=== PATIENT | female | born 2000 | race African-American/Black ===

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

== ENCOUNTER → 2020-03-11 | Outpatient (CLI) | payer OTHER ==
[2020-03-11 11:40] LABS: BASO % 0.6 % (0.0-1.0); EOS # 0.3 10^3/uL (0.0-0.5); EOS % 3.9 % (0.0-3.0); HEMATOCRIT 41.8 % (42.0-52.0); HEMOGLOBIN 13.1 g/dl (13.5-17.5); LYMPH # 2.3 10^3/uL (1.5-5.0); MEAN CORPUSCULAR HEMOGLOBIN 28.6 pg (27.0-33.0); MEAN CORPUSCULAR HGB CONC 31.3 g/dl (32.0-36.5); MEAN CORPUSCULAR VOLUME 91.3 fl (80.0-96.0); MONO # 0.5 10^3/uL (0.0-0.8); MONO % 6.4 % (0.0-5.0); NEUTROPHILS # 4.1 10^3/uL (1.5-8.5); PLATELET COUNT, AUTOMATED 388 10^3/uL (150-450); RED BLOOD COUNT 4.58 10^6/uL (4.30-6.10); WHITE BLOOD COUNT 7.2 10^3/uL (4.0-10.0)
[2020-03-11 12:30] LABS: ALBUMIN 4.3 GM/DL (3.2-5.2); ALT/SGPT 31 U/L (12-78); BILIRUBIN,TOTAL 1.1 MG/DL (0.2-1.0); BLOOD UREA NITROGEN 6 MG/DL (7-18); CALCIUM LEVEL 9.3 MG/DL (8.5-10.1); CARBON DIOXIDE LEVEL 30 MEQ/L (21-32); CHLORIDE LEVEL 102 MEQ/L (98-107); CREATININE FOR GFR 0.62 MG/DL (0.70-1.30); ESTRADIOL 40.9 PG/ML (<39.8); GLUCOSE, FASTING 98 MG/DL (70-100); POTASSIUM SERUM 3.7 MEQ/L (3.5-5.1); SODIUM LEVEL 138 MEQ/L (136-145); TOTAL PROTEIN 7.8 GM/DL (6.4-8.2)
[2020-03-11 13:06] LABS: HIV 1&2 SCREEN CENTAUR NEGATIVE (NEGATIVE)
== END ==
LOC: M LAB 10:57
PROVIDERS: ATTEND Pediatrics
DX: F64.0 Transsexualism (principal)

== ENCOUNTER → 2021-11-28 | Outpatient (CLI) | payer OTHER ==
[~2021-11-28] MED LIST changes: -ESTR2TAB2; +ESTR2TAB3
[2021-11-28 11:45] LABS: HEMATOCRIT 38.3 % (42.0-52.0); HEMOGLOBIN 12.1 g/dl (13.5-17.5); MEAN CORPUSCULAR HEMOGLOBIN 29.2 pg (27.0-33.0); MEAN CORPUSCULAR HGB CONC 31.6 g/dl (32.0-36.5); MEAN CORPUSCULAR VOLUME 92.3 fl (80.0-96.0); PLATELET COUNT, AUTOMATED 421 10^3/uL (150-450); RED BLOOD COUNT 4.15 10^6/uL (4.30-6.10); WHITE BLOOD COUNT 6.9 10^3/uL (4.0-10.0)
[2021-11-28 12:53] LABS: ALBUMIN 3.5 GM/DL (3.2-5.2); ALT/SGPT 27 U/L (12-78); BILIRUBIN,TOTAL 0.8 MG/DL (0.2-1.0); BLOOD UREA NITROGEN 5 MG/DL (7-18); CALCIUM LEVEL 8.7 MG/DL (8.5-10.1); CARBON DIOXIDE LEVEL 32 MEQ/L (21-32); CHLORIDE LEVEL 105 MEQ/L (98-107); CHOLESTEROL LEVEL 121 MG/DL (<200); CREATININE FOR GFR 0.51 MG/DL (0.70-1.30); GLOMERULAR FILTRATION RATE > 60.0 (>60); GLUCOSE, FASTING 84 MG/DL (70-100); HDL CHOLESTEROL 64 MG/DL (>40); LDL CHOLESTEROL 42 MG/DL (<100); NON-HDL-C 57 MG/DL; POTASSIUM SERUM 4.5 MEQ/L (3.5-5.1); SODIUM LEVEL 140 MEQ/L (136-145); TOTAL PROTEIN 6.9 GM/DL (6.4-8.2); TRIGLYCERIDES LEVEL 77 MG/DL (<150)
[2021-11-28 14:09] LABS: ESTRADIOL 356.2 PG/ML (<39.8); PROLACTIN 8.6 NG/ML (2.1-17.7)
[2021-11-29 21:07] LABS: TESTOSTERONE FREE (DIRECT) 2.9 pg/mL (9.3-26.5)
== END ==
LOC: M LAB 11:10
PROVIDERS: ATTEND Internal Medicine Endocrinology, Diabetes & Metabolism
DX: Z78.9 Other specified health status (principal); F64.0 Transsexualism

== ENCOUNTER → 2022-02-03 | Outpatient (CLI) | payer MEDICAID, OTHER ==
[2022-02-04 20:08] LABS: TESTOSTERONE FREE (DIRECT) 0.8 pg/mL (0.0-4.2)
== END ==
LOC: M LAB 09:22
PROVIDERS: ATTEND Internal Medicine Endocrinology, Diabetes & Metabolism
DX: Z78.9 Other specified health status (principal)

== ENCOUNTER → 2022-07-04 | Outpatient (CLI) | payer OTHER ==
[2022-07-04 14:03] LABS: HEMATOCRIT 40.7 % (36.0-47.0); HEMOGLOBIN 12.9 g/dl (12.0-15.5); MEAN CORPUSCULAR HEMOGLOBIN 29.3 pg (27.0-33.0); MEAN CORPUSCULAR HGB CONC 31.7 g/dl (32.0-36.5); MEAN CORPUSCULAR VOLUME 92.3 fl (80.0-96.0); PLATELET COUNT, AUTOMATED 327 10^3/uL (150-450); RED BLOOD COUNT 4.41 10^6/uL (4.00-5.40)
[2022-07-04 14:40] LABS: ALBUMIN 4.2 G/DL (3.2-5.2); ALKALINE PHOSPHATASE 79 U/L (46-116); ALT/SGPT 15 U/L (7.0-40); AST/SGOT 12 U/L (<34); BILIRUBIN,TOTAL 2.5 MG/DL (0.3-1.2); BLOOD UREA NITROGEN < 5 MG/DL (9-23); CALCIUM LEVEL 9.2 MG/DL (8.5-10.1); CARBON DIOXIDE LEVEL 32 MMOL/L (20-31); CHLORIDE LEVEL 102 MMOL/L (98-107); CREATININE FOR GFR 0.57 MG/DL (0.55-1.30); ESTRADIOL 159.3 PG/ML; GLOMERULAR FILTRATION RATE > 60.0 (>60); GLUCOSE, FASTING 81 MG/DL (60-100); SODIUM LEVEL 138 MMOL/L (136-145); TOTAL PROTEIN 7.5 G/DL (5.7-8.2)
[2022-07-06 21:07] LABS: TESTOSTERONE FREE (DIRECT) 5.2 pg/mL (0.0-4.2)
== END ==
LOC: M LAB 13:04
PROVIDERS: ATTEND Internal Medicine Endocrinology, Diabetes & Metabolism
DX: Z78.9 Other specified health status (principal); Z87.890 Personal history of sex reassignment

== ENCOUNTER → 2022-10-23 | Outpatient (CLI) | payer OTHER ==
[2022-10-23 09:57] LABS: HEMATOCRIT 37.4 % (36.0-47.0); HEMOGLOBIN 11.9 g/dl (12.0-15.5); MEAN CORPUSCULAR HEMOGLOBIN 28.9 pg (27.0-33.0); MEAN CORPUSCULAR HGB CONC 31.8 g/dl (32.0-36.5); MEAN CORPUSCULAR VOLUME 90.8 fl (80.0-96.0); PLATELET COUNT, AUTOMATED 320 10^3/uL (150-450); RED BLOOD COUNT 4.12 10^6/uL (4.00-5.40)
[2022-10-23 11:05] LABS: ALBUMIN 3.8 G/DL (3.2-5.2); ALKALINE PHOSPHATASE 88 U/L (46-116); ALT/SGPT 27 U/L (7.0-40); AST/SGOT 18 U/L (<34); BILIRUBIN,TOTAL 1.3 MG/DL (0.3-1.2); BLOOD UREA NITROGEN < 5 MG/DL (9-23); CALCIUM LEVEL 8.7 MG/DL (8.5-10.1); CARBON DIOXIDE LEVEL 28 MMOL/L (20-31); CHLORIDE LEVEL 105 MMOL/L (98-107); GLOMERULAR FILTRATION RATE > 60.0 (>60); GLUCOSE, FASTING 90 MG/DL (60-100); POTASSIUM SERUM 3.8 MMOL/L (3.5-5.1); SODIUM LEVEL 141 MMOL/L (136-145); TOTAL PROTEIN 6.9 G/DL (5.7-8.2)
[2022-10-24 18:07] LABS: TESTOSTERONE FREE (DIRECT) 1.9 pg/mL (0.0-4.2)
== END ==
LOC: M LAB 09:30
PROVIDERS: ATTEND Internal Medicine Endocrinology, Diabetes & Metabolism
DX: Z78.9 Other specified health status (principal)

== ENCOUNTER → 2023-03-12 | Outpatient (CLI) | payer OTHER ==
[2023-03-12 14:12] LABS: HEMATOCRIT 39.3 % (36.0-47.0); HEMOGLOBIN 12.5 g/dl (12.0-15.5); MEAN CORPUSCULAR HEMOGLOBIN 28.9 pg (27.0-33.0); MEAN CORPUSCULAR HGB CONC 31.8 g/dl (32.0-36.5); PLATELET COUNT, AUTOMATED 360 10^3/uL (150-450); RED BLOOD COUNT 4.32 10^6/uL (4.00-5.40); WHITE BLOOD COUNT 8.2 10^3/uL (4.0-10.0)
[2023-03-12 14:41] LABS: ALBUMIN 4.1 G/DL (3.2-5.2); ALKALINE PHOSPHATASE 86 U/L (46-116); ALT/SGPT 32 U/L (7.0-40); AST/SGOT 17 U/L (<34); BLOOD UREA NITROGEN 7 MG/DL (9-23); CALCIUM LEVEL 9.1 MG/DL (8.5-10.1); CARBON DIOXIDE LEVEL 32 MMOL/L (20-31); CHLORIDE LEVEL 104 MMOL/L (98-107); CHOLESTEROL LEVEL 150 MG/DL (<200); CHOLESTEROL RISK RATIO 2.33 (<5); CREATININE FOR GFR 0.45 MG/DL (0.55-1.30); GLOMERULAR FILTRATION RATE > 60.0 (>60); GLUCOSE, FASTING 77 MG/DL (60-100); HDL CHOLESTEROL 64.3 MG/DL (>40); LDL CHOLESTEROL 68.3 MG/DL (<100); NON-HDL-C 85.7 MG/DL; SODIUM LEVEL 138 MMOL/L (136-145); TOTAL PROTEIN 7.2 G/DL (5.7-8.2); TRIGLYCERIDES LEVEL 87 MG/DL (<150)
[2023-03-12 14:42] LABS: ESTRADIOL 143.4 PG/ML; FREE T4 1.02 NG/DL (0.89-1.76); THYROID STIMULATING HORMONE 2.264 uIU/ML (0.55-4.78)
[2023-03-12 14:43] LABS: TOTAL 25(OH) VITAMIN D 24.4 NG/ML (20.0-100.0); VITAMIN B12 LEVEL 579 PG/ML (211-911)
== END ==
LOC: M LAB 09:54
PROVIDERS: ATTEND Internal Medicine Endocrinology, Diabetes & Metabolism
DX: F64.0 Transsexualism (principal); Z78.9 Other specified health status

== ENCOUNTER → 2023-04-26 | Outpatient (CLI) | payer OTHER ==
[2023-04-26 10:56] LABS: BASO # 0.1 10^3/uL (0.0-0.2); BASO % 1.1 % (0.0-1.0); EOS # 0.2 10^3/uL (0.0-0.5); EOS % 3.9 % (0.0-3.0); HEMATOCRIT 39.1 % (36.0-47.0); HEMOGLOBIN 12.3 g/dl (12.0-15.5); LYMPH # 1.4 10^3/uL (1.5-5.0); LYMPH % 29.6 % (24.0-44.0); MEAN CORPUSCULAR HEMOGLOBIN 28.5 pg (27.0-33.0); MEAN CORPUSCULAR HGB CONC 31.5 g/dl (32.0-36.5); MEAN CORPUSCULAR VOLUME 90.7 fl (80.0-96.0); MONO # 0.3 10^3/uL (0.0-0.8); MONO % 6.7 % (2.0-8.0); NEUTROPHILS # 2.7 10^3/uL (1.5-8.5); NEUTROPHILS % 58.5 % (36.0-66.0); PLATELET COUNT, AUTOMATED 327 10^3/uL (150-450); RED BLOOD COUNT 4.31 10^6/uL (4.00-5.40); WHITE BLOOD COUNT 4.6 10^3/uL (4.0-10.0)
[2023-04-26 11:48] LABS: ALBUMIN 3.8 G/DL (3.2-5.2); ALKALINE PHOSPHATASE 87 U/L (46-116); ALT/SGPT 45 U/L (7.0-40); AST/SGOT 23 U/L (<34); BLOOD UREA NITROGEN 6 MG/DL (9-23); CALCIUM LEVEL 9.1 MG/DL (8.5-10.1); CARBON DIOXIDE LEVEL 32 MMOL/L (20-31); CHLORIDE LEVEL 103 MMOL/L (98-107); CREATININE FOR GFR 0.49 MG/DL (0.55-1.30); GLOMERULAR FILTRATION RATE > 60.0 (>60); GLUCOSE, FASTING 84 MG/DL (60-100); MAGNESIUM LEVEL 1.9 MG/DL (1.8-2.4); POTASSIUM SERUM 3.7 MMOL/L (3.5-5.1); SODIUM LEVEL 138 MMOL/L (136-145); TOTAL PROTEIN 7.1 G/DL (5.7-8.2)
[2023-04-26 11:49] LABS: THYROID STIMULATING HORMONE 1.364 uIU/ML (0.55-4.78)
[2023-04-26 11:50] LABS: TOTAL 25(OH) VITAMIN D 17.5 NG/ML (20.0-100.0)
[2023-04-26 12:22] LABS: HIV 1&2 SCREEN NEGATIVE (NEGATIVE)
[2023-04-26 12:30] LABS: HEPATITIS C VIRUS ABY INDEX 0.02 INDEX (<0.8)
== END ==
LOC: M LAB 10:11
PROVIDERS: ATTEND Physician Assistant
DX: E55.9 Vitamin D deficiency, unspecified (principal); R53.83 Other fatigue; R44.8 Other symptoms and signs involving general sensations and perceptions; Z11.9 Encounter for screening for infectious and parasitic diseases, unspecified